=== PATIENT | female | born 1975 | race Caucasian/White ===

== ENCOUNTER 2020-09-14 20:42 | Emergency (ER) | payer OTHER ==
[~2020-09-14] VITALS: Ht 157.5 cm; Wt 71.0 kg
[2020-09-14] MEDS ORDERED: KETOROLAC 30MG/ML VIAL IV STA (21:20)
[2020-09-14] MEDS ORDERED: ONDANSETRON HCL 4MG/2ML INJ IV STA (21:20)
[2020-09-14] MEDS ORDERED: FAMOTIDINE 20MG/2ML VIAL IV STA (21:20)
[2020-09-14] MEDS ORDERED: SODIUM CHLORIDE 0.9% 1,000 ML IV ONE (21:30)
[2020-09-14 21:50] LABS: BASOPHILS % 0.6 % (0.0-2.0); EOSINOPHILS % 2.7 % (0.0-5.0); HEMATOCRIT. 38.4 % (36.0-48.0); HEMOGLOBIN. 12.5 g/dL (12.0-16.0); LYMPHOCYTES % 19.5 % (20.0-50.0); MEAN CORPUSCULAR HEMOGLOBIN 26.5 pg (28.0-32.0); MEAN CORPUSCULAR VOLUME 81.4 fL (81.0-99.0); MEAN PLATELET VOLUME 8.1 fl (7.4-10.4); MONOCYTES % 6.3 % (2.0-8.0); NEUTROPHILS % 70.9 % (40.0-76.0); PLATELET 326 x1000/uL (130-400); RED BLOOD CELL COUNT 4.72 mill/uL (4.2-5.4); RED CELL DISTRIBUTION WIDTH 15.2 % (11.6-14.6)
[2020-09-14 21:54] LABS: CHLORIDE 106 mEq/L (98-107)
[2020-09-14] MEDS ORDERED: ONDA4TAB5 MT (23:37)
[2020-09-15 01:04] VITALS: BP 133/72
[2020-09-15] MEDS ORDERED: IOHEXOL-300 100 ML BOTTLE ONE (07:36)
== END 2020-09-15 01:05 | disposition home or self-care (01) ==
LOC: ER 20:42
DX: K52.9 Noninfective gastroenteritis and colitis, unspecified (principal); R11.2 Nausea with vomiting, unspecified; Z98.890 Other specified postprocedural states
CPT/HCPCS: 36415; 74177; 80053; 81025; 83690; 85025; 96361; 96374; 96375; 99285; J1885; J2405; J3490; J7030; Q9967